=== PATIENT | female | born 1940 | race Caucasian/White ===

== ENCOUNTER 2016-10-25 07:38 | Emergency (ER) | payer MEDICARE ==
[2016-10-25 07:54] VITALS: BP 170/93
--- NOTE | 2016-10-25 08:18 | UC ---
Skin Complaint HPI - HPI Summary HPI Summary: Patient was jayant boots 2 days ago, felt something"poke" her in the ankle. a friend removed a splinter, now the area is red and has a sloughly center. - History of Current Complaint Chief Complaint: UCLowerExtremity Stated Complaint: LEFT ANKLE PAIN Hx Obtained From: Patient ?: No Onset/Duration: Sudden Onset, Lasting Days Timing: Constant Onset Severity: Mild Current Severity: Mild Pain Intensity: 2 Pain Scale Used: 0-10 Numeric Location: Discrete - left lat maleollus Character: Redness Aggravating: Touch Alleviating: Nothing - Allergy/Home Medications Allergies/Adverse Reactions: Allergies Allergy/AdvReac Type Severity Reaction Status Date / Time Morphine Allergy Nausea Verified 10/25/16 07:54 Home Medications: Home Medications Flaxseed (Linseed) [Flax Seeds] 1 dose PO QAM 10/25/16 [History Confirmed ] Review of Systems Constitutional: Negative Skin: Other - redness Eyes: Negative ENT: Negative Respiratory: Negative Cardiovascular: Negative Gastrointestinal: Negative Genitourinary: Negative Motor: Negative Neurovascular: Negative Musculoskeletal: Negative Neurological: Negative Psychological: Negative All Other Systems Reviewed And Are Negative: Yes PMH/Surg Hx/FS Hx/Imm Hx Previously Healthy: Yes Cardiovascular History Of: Reports: Hypertension - Surgical History Surgical History: Yes Surgery Procedure, Year, and Place: [facility] - Family History Known Family History: Positive: Hypertension - Social History Alcohol Use: Daily Alcohol Amount: wine Substance Use Type: None Smoking Status (MU): Never Smoked Tobacco - Immunization History Most Recent Tetanus Shot: 01/2016 Physical Exam Triage Information Reviewed: Yes Appearance: Well-Appearing, Well-Nourished, Pain Distress Vital Signs: Initial Vital Signs Temp 97.6 F 10/25/16 07:45 Pulse 68 10/25/16 07:45 Resp 20 10/25/16 07:45 BP 170/93 10/25/16 07:45 Pulse Ox 100 10/25/16 07:45 Vital Signs Reviewed: Yes Eye Exam: Normal Eyes: Positive: Conjunctiva Clear ENT Exam: Normal ENT: Positive: Normal ENT inspection, Hearing grossly normal, Pharynx normal, TMs normal Dental Exam: Normal Neck exam: Normal Neck: Positive: Supple, Nontender, No Lymphadenopathy Respiratory Exam: Normal Respiratory: Positive: Chest non-tender, Lungs clear, Normal breath sounds Cardiovascular Exam: Normal Cardiovascular: Positive: RRR, No Murmur, Pulses Normal Abdominal Exam: Normal Abdomen Description: Positive: Nontender, No Organomegaly, Soft Bowel Sounds: Positive: Present Musculoskeletal Exam: Normal Musculoskeletal: Positive: Strength Intact, ROM Intact, No Edema Neurological Exam: Normal Psychological Exam: Normal Skin Exam: Normal Course/Dx - Course Course Of Treatment: hx obtained, exam performed, medications reviewed, patient BP high, she is on medications and is being follow by a PCP. bactroban prescribed. - Differential Diagnoses - Skin Complaint Differential Diagnoses: Abscess, Cellulitis, Contact Dermatitis - Diagnoses Provider Diagnoses: subcutaneous infection of left ankle Discharge - Discharge Plan Condition: Stable Disposition: HOME Prescriptions: Mupirocin 2% CREAM* [Bactroban 2% CREAM*] 1 applic TOPICAL TID #1 tube Patient Education Materials: Puncture Wound (ED) Additional Instructions: I recommend warm foot soks daily and then apply the bactroban to the area TID for 5 days. follow up if redness begins to spread.
== END 2016-10-25 08:30 | disposition home or self-care (01) ==
LOC: UCCORT 07:38
DX: L08.9 Local infection of the skin and subcutaneous tissue, unspecified (principal); I10 Essential (primary) hypertension; Z88.5 Allergy status to narcotic agent
CPT/HCPCS: 99212; G0463

== ENCOUNTER 2017-08-24 08:47 | Emergency (ER) | payer MEDICARE ==
--- NOTE | 2017-08-24 08:52 | UC ---
Throat Pain/Nasal Karel HPI - HPI Summary HPI Summary: 77 year old female presents with complains of bilateral nare pain. - History of Current Complaint Stated Complaint: NASAL COMPLAINT Time Seen by Provider: 08/24/17 08:51 Hx Obtained From: Patient Onset/Duration: Sudden Onset Severity: Moderate Pain Scale Used: 0-10 Numeric - 5 Cough: Nonproductive Associated Signs & Symptoms: Positive: Negative - Allergies/Home Medications Allergies/Adverse Reactions: Allergies Allergy/AdvReac Type Severity Reaction Status Date / Time Morphine Allergy Nausea Verified 08/24/17 09:11 PMH/Surg Hx/FS Hx/Imm Hx Previously Healthy: Yes - Surgical History Surgical History: Yes Surgery Procedure, Year, and Place: [facility] ([place]) - Family History Known Family History: Positive: Hypertension - Social History Alcohol Use: Daily Alcohol Amount: wine Substance Use Type: None Smoking Status (MU): Never Smoked Tobacco - Immunization History Most Recent Tetanus Shot: 01/2016 Review of Systems Constitutional: Negative Skin: Negative Eyes: Negative ENT: Sinus Congestion Respiratory: Negative Cardiovascular: Negative Gastrointestinal: Negative Genitourinary: Negative Motor: Negative Neurovascular: Negative Musculoskeletal: Negative Neurological: Negative Psychological: Negative All Other Systems Reviewed And Are Negative: Yes Physical Exam Triage Information Reviewed: Yes Vital Signs Reviewed: Yes Eye Exam: Normal ENT: Positive: Nasal congestion Dental Exam: Normal Neck exam: Normal Neck: Positive: 1 Respiratory Exam: Normal Cardiovascular Exam: Normal Abdominal Exam: Normal Musculoskeletal Exam: Normal Neurological Exam: Normal Psychological Exam: Normal Skin Exam: Normal Throat Pain/Nasal Course/Dx - Differential Dx/Diagnosis Provider Diagnoses: nasal congestion. sinusitis Discharge - Discharge Plan Condition: Stable Disposition: HOME Prescriptions: Amoxicillin PO (*) [Amoxicillin 875 MG (*)] 875 mg PO BID #14 tab Fluticasone NASAL SPRAY 50MCG* [Flonase NASAL SPRAY 50MCG*] 2 spray BOTH NARES DAILY #1 btl Methylprednisolone [Medrol Dosepak 4 MG*] 4 mg PO .SEE [employer] INSTRUCTION #21 tab Patient Education Materials: Sinusitis (ED) Referrals: Kolby Padron MD [Medical Doctor] - Samantha Lynch [Physician School Psychology Specialist] -
[2017-08-24 09:11] VITALS: BP 192/87
== END 2017-08-24 09:24 | disposition home or self-care (01) ==
LOC: UCCORT 08:47
DX: J32.9 Chronic sinusitis, unspecified (principal); R09.81 Nasal congestion; Z88.5 Allergy status to narcotic agent
CPT/HCPCS: 99212; G0463

== ENCOUNTER 2018-12-22 08:27 | Emergency (ER) | payer MEDICARE ==
[2018-12-22 08:42] VITALS: BP 201/96
--- NOTE | 2018-12-22 09:01 | UC ---
Respiratory Complaint HPI - HPI Summary HPI Summary: Patient is a 78 year old female , who present today to the urgent care with upper respiratory symptoms for past 3 days. Symptom onset on with sore throat and cough dry nonproductive, she is not able to sleep because of that. No sick contacts . She denies any fevers slightly painful to swallow. Denies any chest pain or shortness of breath . Denies any abdominal pain , nausea or vomiting , diarrhea or constipation. She takes Robitussin and doing salt water gargles Her blood pressure is high in the clinic today but she denies any headaches, chest pain or shortness of breath. Denies any visual disturbance. - History of Current Complaint Chief Complaint: UCGeneralIllness Stated Complaint: THROAT COMPLAINT Time Seen by Provider: 12/22/18 08:46 Hx Obtained From: Patient ?: No Pain Intensity: 2 - Allergies/Home Medications Allergies/Adverse Reactions: Allergies Allergy/AdvReac Type Severity Reaction Status Date / Time morphine Allergy Nausea Verified 12/22/18 08:40 Home Medications: Home Medications Aspirin TAB* [Aspirin 325 MG TAB*] 325 mg PO DAILY 12/22/18 [History Confirmed 12/22/18] PMH/Surg Hx/FS Hx/Imm Hx - Additional Past Medical History Additional PMH: Hypertension Previously Healthy: Yes - Surgical History Surgical History: Yes Surgery Procedure, Year, and Place: [facility], [place] - Family History Known Family History: Positive: Hypertension - Social History Alcohol Use: Daily Alcohol Amount: wine Substance Use Type: None Smoking Status (MU): Never Smoked Tobacco - Immunization History Most Recent Influenza Vaccination: current 2016/2017 Most Recent Tetanus Shot: 01/2016 Most Recent Pneumonia Vaccination: 2014 Review of Systems All Other Systems Reviewed And Are Negative: Yes Constitutional: Positive: Negative Skin: Positive: Negative Eyes: Positive: Negative ENT: Positive: Sore Throat Respiratory: Positive: Cough - Dry nonproductive Cardiovascular: Positive: Negative Gastrointestinal: Positive: Negative Genitourinary: Positive: Negative Motor: Positive: Negative Neurovascular: Positive: Negative Musculoskeletal: Positive: Negative Neurological: Positive: Negative Psychological: Positive: Negative Is Patient Immunocompromised?: No Physical Exam - Summary Physical Exam Summary: Physical Exam: Const: Appears well. No signs of apparent distress present. Alert and oriented x 3. Musculo: Walks with a normal gait. Head/Face: Atraumatic, normocephalic on inspection. Eyes: EOMI and PERRLA in both eyes. Conjunctivae clear. No discharge noted ENT: Hearing normal, TM normal appearing bilaterally No tenderness to palpation on maxillary and frontal sinus. mild pharyngeal erythema without any exudates . Uvula is midline. Bilateral anterior cervical lymphadenopathy noted- nontender to palpate.. Respiratory: Respirations are unlabored. Lungs clear to auscultation bilaterally, no wheezing , rhonchi or rales noted . CVS: Regular rate and Rhythm, S1S2 normal , no murmurs identified. Extremities: Peripheral circulation is grossly normal. Pulses 2+ Abdomen : Soft non tender , nondistended , Bowel sounds present . No guarding , rebound tenderness or rigidity noted. Skin: No lesions or rash located on the upper extremities or on the lower extremities. Neuro: Cranial nerves II to XII intact, motor and sensory intact. DTR Intact bilaterally. Mood is normal. Affect is normal. Triage Information Reviewed: Yes Vital Signs: Initial Vital Signs Temp 97.3 F 12/22/18 08:36 Pulse 73 12/22/18 08:36 Resp 19 12/22/18 08:36 BP 201/96 12/22/18 08:36 Pulse Ox 100 12/22/18 08:36 Vital Signs Reviewed: Yes Respiratory Course/Dx - Course Course Of Treatment: During the visit today, we obtained a rapid strep test , negative. We discussed the findings and further plan and treat it like a viral syndrome. I will prescribe the cough suppressant to the pharmacy . Patient expressed understanding . - Differential Dx/Diagnosis Provider Diagnosis: Viral syndrome Discharge - Sign-Out/Discharge Documenting (check all that apply): Patient Departure All imaging exams completed and their final reports reviewed: No Studies - Discharge Plan Condition: Stable Disposition: HOME Patient Education Materials: Viral Syndrome (ED) Referrals: Lisa Potter PA [Primary Care Provider] - 3 Days Additional Instructions: Please start taking the medication as prescribed to the pharmacy for cough. You can also take NyQuil at nighttime. Ibuprofen or Tylenol as needed for fever Salt water gargles will be helpful Keep yourself hydrated Follow up with your primary care doctor in 2 -3 days Patients blood pressure slightly high in Urgent care today , plan follow up with PCP for better control Return to Urgent care / ER if symptoms get worse. - Billing Disposition and Condition Condition: STABLE Disposition: Home
== END 2018-12-22 09:45 | disposition home or self-care (01) ==
LOC: UCCORT 08:27
DX: B34.9 Viral infection, unspecified (principal); J02.9 Acute pharyngitis, unspecified; R05 Cough; I10 Essential (primary) hypertension; Z88.5 Allergy status to narcotic agent; Z79.82 Long term (current) use of aspirin
CPT/HCPCS: 87651; 99212; G0463

== ENCOUNTER 2022-06-20 11:46 | Observation (INO) ==
[~2022-06-20 11:46] MED LIST: Buffered Lidocaine 1% SYRIN 1 ml INTRADERM ONE; HYDROmorphone 1 MG/1 ML SYRINGE IV PRN; Lactated Ringers 1000 ml BAG 1,000 ML IV SCH; Naloxone 0.4 mg VIAL 0.4 mg/ml 1 ml VIAL IV PRN; Prochlorperazine 5 mg/ml 2 ml VIAL (10 mg) IV PRN
[2022-06-20] MEDS ORDERED: ceFAZolin 2 GM in NS PREMIX 2 GM/100 ML BAG IVPB ONE (12:29)
[2022-06-20] MEDS ORDERED: fentaNYL 100 mcg/2 ml 50 MCG/ML VIAL ONE (14:03)
[2022-06-20] MEDS ORDERED: Rocuronium 50 mg VIAL 10 mg/ml 5 ml VIAL (50 mg) ONE (14:05)
[2022-06-20] MEDS ORDERED: Lidocaine 2% PF 5 ML VIAL ONE (14:06)
[2022-06-20] MEDS ORDERED: Propofol 10 MG/ML 20 ML BTL ONE (14:07)
[2022-06-20] MEDS ORDERED: Dexamethasone IV 4 MG/ML VIAL 1 ml VIAL ONE (15:27)
[2022-06-20] MEDS ORDERED: Ondansetron 4 mg VIAL 2 MG/ML 2 ml VIAL ONE (15:27)
[2022-06-20] MEDS ORDERED: Ondansetron ODT 4 mg TAB 4 MG TAB PO PRN (16:31)
[2022-06-20] MEDS ORDERED: Ondansetron 4 mg VIAL 2 MG/ML 2 ml VIAL IV PRN (16:31)
[2022-06-20] MEDS ORDERED: Magnesium Hydroxide LIQ 30 ML UDC PO PRN (16:31)
[2022-06-20] MEDS ORDERED: Lactulose 30 ml UDC PO PRN (16:31)
[2022-06-20] MEDS ORDERED: Glycopyrrolate IV 0.2 MG/ML 1 ML VIAL ONE (16:50)
[2022-06-20] MEDS ORDERED: Lactated Ringers 1000 ml BAG 1,000 ML IV SCH (17:00)
[2022-06-20] MEDS ORDERED: Enoxaparin 40 MG/0.4 ML SYR SUBCUT SCH (18:00)
[2022-06-20] MEDS ORDERED: Labetalol IV 5 MG/ML 20 ml VIAL IV PUSH ONE (18:05)
[2022-06-20] MEDS: Magnesium Hydroxide LIQ 30 ML UDC PO SCH (21:15)
[2022-06-21] MEDS: ceFAZolin 1 GM ADVAN 1 GM in NS 0.9% 50 ML 50 ML IVPB SCH ×3 (00:15→15:17)
[2022-06-21 07:19] LABS: Hematocrit 35 % (35-47); Hemoglobin 11.1 g/dL (12.0-16.0); Mean Platelet Volume 9.6 fL (7.4-10.4); Platelet Count 250 10^3/uL (150-450)
[2022-06-21 07:36] LABS: CO2 Carbon Dioxide 24 mmol/L (22-32); Calcium 9.5 mg/dL (8.6-10.3); Chloride 105 mmol/L (101-111); Sodium 139 mmol/L (135-145)
[2022-06-21 07:42] LABS: Blood Urea Nitrogen 15 mg/dL (6-24); Glucose 124 mg/dL (70-100); eGFR CKD-EPI 77.9 (>60)
[2022-06-21 08:15] LABS: Anion Gap 10 mmol/L (2-11)
[2022-06-21] MEDS ORDERED: TIMOLOL OPTH BOTH EYES SCH (09:00)
[2022-06-21] MEDS ORDERED: Enoxaparin 40 MG/0.4 ML SYR SUBCUT SCH (09:00)
[2022-06-21] MEDS ORDERED: Vitamin THERAPEUTIC TAB PO SCH (09:00)
[2022-06-21] MEDS ORDERED: OPTH BOTH EYES SCH (09:00)
[2022-06-21] MEDS ORDERED: DORZOLAMIDE BOTH EYES SCH (09:00)
[2022-06-21] MEDS ORDERED: DORZOLAMIDE 2% BOTH EYES SCH (09:00)
[2022-06-21] MEDS: Magnesium Hydroxide LIQ 30 ML UDC PO SCH (09:59)
[2022-06-21 11:55] VITALS: BP 148/78
== END 2022-06-21 16:15 | disposition home or self-care (01) ==
LOC: AA 11:46 → INTOOBSV 11:46 → SSU 19:59
PROVIDERS: ADMIT Orthopaedic Surgery Adult Reconstructive Orthopaedic Surgery; ATTEND Orthopaedic Surgery Adult Reconstructive Orthopaedic Surgery

== ENCOUNTER 2023-01-30 06:21 | Inpatient (IN) ==
[~2023-01-30 06:21] MED LIST changes: +Dexamethasone IV 4 MG/ML VIAL 1 ml VIAL IV SLOW PU ONE; +Famotidine IV 10 MG/ML 2 ml VIAL (20 mg) IV ONE; -HYDROmorphone 1 MG/1 ML SYRINGE IV PRN; -Naloxone 0.4 mg VIAL 0.4 mg/ml 1 ml VIAL IV PRN; -Prochlorperazine 5 mg/ml 2 ml VIAL (10 mg) IV PRN; +Tranexamic Acid 1,000 MG/10 ML 1,000 MG in NS 0.9% 50 ML 50 ML IV SCH
[2023-01-30] MEDS ORDERED: ceFAZolin 2 GM in NS PREMIX 2 GM/100 ML BAG IVPB ONE (07:03)
[2023-01-30] MEDS ORDERED: Famotidine IV 10 MG/ML 2 ml VIAL (20 mg) ONE (07:03)
[2023-01-30] MEDS ORDERED: Dexamethasone IV 4 MG/ML VIAL 1 ml VIAL ONE ×2 (07:03→10:52)
[2023-01-30 07:14] LABS: Rapid COVID-19 Molecular Undetected (Undetected)
[2023-01-30] MEDS ORDERED: ROPIVACAINE 5 MG/ML 30 ML BTL (0.5%) ONE ×2 (08:37→09:25)
[2023-01-30] MEDS ORDERED: Naloxone 0.4 mg VIAL 0.4 mg/ml 1 ml VIAL IV PRN (08:42)
[2023-01-30] MEDS ORDERED: fentaNYL 100 mcg/2 ml 50 MCG/ML VIAL IV PRN (08:42)
[2023-01-30] MEDS ORDERED: fentaNYL 100 mcg/2 ml 50 MCG/ML VIAL ONE ×3 (09:03→12:28)
[2023-01-30] MEDS ORDERED: Midazolam 2 mg/2 ml VIAL 1 mg/ml 2 ml VIAL (2 mg) ONE (09:03)
[2023-01-30] MEDS ORDERED: hydrALAZINE 20 mg/ml 1 ML Vial IV ONE (09:11)
[2023-01-30] MEDS ORDERED: Lidocaine 2% PF 5 ML VIAL ONE (10:02)
[2023-01-30] MEDS ORDERED: HYDROmorphone 0.5 MG/0.5 ML SYRINGE ONE (10:36)
[2023-01-30] MEDS ORDERED: Dextrose 50% VIAL 50 ml ONE (10:52)
[2023-01-30] MEDS ORDERED: Propofol 10 MG/ML 20 ML BTL ONE (10:52)
[2023-01-30] MEDS ORDERED: Ondansetron 4 mg VIAL 2 MG/ML 2 ml VIAL ONE (10:52)
[2023-01-30] MEDS ORDERED: Propofol 0 MG/0 ML BTL ONE (10:52)
[2023-01-30] MEDS ORDERED: Acetaminophen IV 1 GM/100ML 1,000 MG/100 ML BAG IV ONE (10:53)
[2023-01-30] MEDS ORDERED: Lactulose 30 ml UDC PO PRN (12:21)
[2023-01-30] MEDS ORDERED: Ondansetron 4 mg VIAL 2 MG/ML 2 ml VIAL IV PRN (12:21)
[2023-01-30] MEDS ORDERED: Ondansetron ODT 4 mg TAB 4 MG TAB PO PRN (12:21)
[2023-01-30] MEDS ORDERED: Magnesium Hydroxide LIQ 30 ML UDC PO PRN (12:21)
[2023-01-30] MEDS: Lactated Ringers 1000 ml BAG 1,000 ML IV SCH (15:44)
[2023-01-30] MEDS: ceFAZolin 1 GM ADVAN 1 GM in NS 0.9% 50 ML 50 ML IVPB SCH (17:38)
[2023-01-30] MEDS ORDERED: hydrALAZINE 20 mg/ml 1 ML Vial IV IV SLOW PU PRN (17:54)
[2023-01-30] MEDS: Magnesium Hydroxide LIQ 30 ML UDC PO SCH (20:43)
[2023-01-30] MEDS: DORZOLAMIDE TIMOLOL OPHTHALMIC SCH (20:47)
[2023-01-30] MEDS ORDERED: Latanoprost 0.005% 2.5 ml BTL BOTH EYES SCH (21:00)
[2023-01-31] MEDS: Lactated Ringers 1000 ml BAG 1,000 ML IV SCH (01:31)
[2023-01-31] MEDS: ceFAZolin 1 GM ADVAN 1 GM in NS 0.9% 50 ML 50 ML IVPB SCH ×2 (01:33→10:28)
[2023-01-31 08:02] LABS: Hematocrit 35.9 % (35-45); Hemoglobin 11.8 g/dL (11.5-14.3); Mean Platelet Volume 8.4 fL (7.5-11.2); Platelet Count 317 10^3/uL (150-450)
[2023-01-31] MEDS: Magnesium Hydroxide LIQ 30 ML UDC PO SCH (08:14)
[2023-01-31] MEDS: DORZOLAMIDE TIMOLOL OPHTHALMIC SCH (08:20)
[2023-01-31 08:24] LABS: Calcium 9.6 mg/dL (8.6-10.3); Creatinine, Serum 0.71 mg/dL (0.51-0.95); Potassium 4.1 mmol/L (3.5-5.0); eGFR CKD-EPI 85.4 (>60)
[2023-01-31] MEDS ORDERED: Vitamin THERAPEUTIC TAB PO SCH (09:00)
[2023-01-31 11:39] VITALS: BP 133/83
== END 2023-01-31 15:03 | disposition home or self-care (01) | DRG 470 ==
LOC: INTOOBSV 06:21 → AA 06:21 → SSU 12:21
PROVIDERS: ADMIT Orthopaedic Surgery Adult Reconstructive Orthopaedic Surgery; ATTEND Orthopaedic Surgery Adult Reconstructive Orthopaedic Surgery

== ENCOUNTER 2024-09-09 11:48 | Observation (INO) ==
[~2024-09-09 11:48] MED LIST changes: -Buffered Lidocaine 1% SYRIN 1 ml INTRADERM ONE; -Dexamethasone IV 4 MG/ML VIAL 1 ml VIAL IV SLOW PU ONE; -Famotidine IV 10 MG/ML 2 ml VIAL (20 mg) IV ONE; -Lactated Ringers 1000 ml BAG 1,000 ML IV SCH; +NS 0.45% 1000 ml BAG 1,000 ML IV SCH; +Naloxone 0.4 mg VIAL 0.4 mg/ml 1 ml VIAL IV PRN; +Ondansetron 4 mg VIAL 2 MG/ML 2 ml VIAL IV PRN; -Tranexamic Acid 1,000 MG/10 ML 1,000 MG in NS 0.9% 50 ML 50 ML IV SCH; +fentaNYL 100 mcg/2 ml 50 MCG/ML VIAL IV PRN
[2024-09-09] MEDS ORDERED: ceFAZolin 2 GM PREMIX 2 GM/50 ML BAG ONE (12:15)
[2024-09-09] MEDS ORDERED: Tranexamic Acid 1 GM/100ML BAG 2,000 MG/200 ML BAG IV ONE (12:15)
[2024-09-09] MEDS ORDERED: Midazolam 5 mg/5 ml VIAL 1 mg/ml 5 ml VIAL (5 mg) ONE (12:30)
[2024-09-09] MEDS ORDERED: fentaNYL 100 mcg/2 ml 50 MCG/ML VIAL ONE (12:31)
[2024-09-09] MEDS ORDERED: ROPIVACAINE 5 MG/ML 30 ML BTL (0.5%) ONE ×2 (12:31→13:23)
[2024-09-09 12:48] LABS: Rapid COVID-19 Molecular Undetected (Undetected)
[2024-09-09] MEDS: Lactated Ringers 1000 ml BAG 1,000 ML IV SCH ×2 (12:56→18:53)
[2024-09-09] MEDS ORDERED: Rocuronium 50 mg VIAL 10 mg/ml 5 ml VIAL (50 mg) ONE (14:34)
[2024-09-09] MEDS ORDERED: Artificial Tear OPHTH.OINT 3.5 GM ONE (14:46)
[2024-09-09] MEDS ORDERED: Lidocaine 2% PF 5 ML VIAL ONE (14:53)
[2024-09-09] MEDS ORDERED: Propofol 10 MG/ML 20 ML BTL ONE ×3 (14:54→15:15)
[2024-09-09] MEDS ORDERED: Ondansetron 4 mg VIAL 2 MG/ML 2 ml VIAL ONE (14:57)
[2024-09-09] MEDS ORDERED: Dexamethasone IV 4 MG/ML VIAL 1 ml VIAL ONE (14:57)
[2024-09-09] MEDS ORDERED: HYDROmorphone 0.5 MG/0.5 ML SYRINGE ONE ×3 (15:18→15:31)
[2024-09-09] MEDS ORDERED: Calcium Carb (TUMS) 500 mg CHEW TAB PO PRN (16:19)
[2024-09-09] MEDS ORDERED: Magnesium Hydroxide LIQ 30 ML UDC PO PRN (16:19)
[2024-09-09] MEDS ORDERED: Lactulose 30 ml UDC PO PRN (16:19)
[2024-09-09] MEDS ORDERED: Ondansetron 4 mg VIAL 2 MG/ML 2 ml VIAL IV PRN (16:19)
[2024-09-09] MEDS ORDERED: Ondansetron ODT 4 mg TAB 4 MG TAB PO PRN (16:19)
[2024-09-09] MEDS ORDERED: Senna TAB 8.6 mg TAB PO PRN (17:40)
[2024-09-09] MEDS ORDERED: hydrALAZINE 20 mg/ml 1 ML Vial IV ONE (17:45)
[2024-09-09] MEDS: hydrALAZINE 20 mg/ml 1 ML Vial IV IV SLOW PU ONE (17:54)
[2024-09-09] MEDS: Buffered Lidocaine 1% SYRIN 1 ml INTRADERM ONE (18:53)
[2024-09-09] MEDS: Acetaminophen IV 1 GM/100ML 1,000 MG/100 ML BAG IV ONE (18:53)
[2024-09-09] MEDS: Magnesium Hydroxide LIQ 30 ML UDC PO SCH (20:51)
[2024-09-09] MEDS: ceFAZolin 2 GM PREMIX 2 GM/50 ML BAG IV SCH (22:35)
[2024-09-10] MEDS: hydrALAZINE 20 mg/ml 1 ML Vial IV IV SLOW PU PRN (02:35)
[2024-09-10 05:49] LABS: Hematocrit 39.6 % (35-45); Hemoglobin 13.3 g/dL (11.5-14.3); Mean Platelet Volume 8.3 fL (7.5-11.2); Platelet Count 270 10^3/uL (150-450)
[2024-09-10 06:38] LABS: Calcium 8.6 mg/dL (8.6-10.3); Creatinine, Serum 0.73 mg/dL (0.51-0.95); Potassium 4.5 mmol/L (3.5-5.0); eGFR CKD-EPI 81.5 (>60)
[2024-09-10] MEDS: Vitamin THERAPEUTIC TAB PO SCH (08:01)
[2024-09-10 13:51] VITALS: BP 178/90
== END 2024-09-10 16:25 | disposition home or self-care (01) ==
LOC: SSU 11:48 → OR 11:48
PROVIDERS: ADMIT Orthopaedic Surgery Adult Reconstructive Orthopaedic Surgery; ATTEND Orthopaedic Surgery Adult Reconstructive Orthopaedic Surgery